=== PATIENT | male | born 1940 | race Caucasian/White ===

== ENCOUNTER 2018-08-24 16:52 | Emergency (ER) | payer MEDICARE, BC ==
--- NOTE | 2018-08-24 18:32 | EDM.PDOC ---
ED HPI GENERAL MEDICAL PROBLEM - General Chief Complaint: Chest Pain Stated Complaint: CHEST PAIN Time Seen by Provider: 08/24/18 18:12 Source of Information: Reports: Patient, Family (), RN Notes Reviewed - History of Present Illness INITIAL COMMENTS - FREE TEXT/NARRATIVE: 78 year old male has had R shoulder discomfort, mainly with abduction type motion since last evening. 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 No recent fall or injury. No anterior chest disomfort or heaviness. He has not been coughing any more than usual. He does not feel short of breath. No abdominal pain nausea vomiting or diaphoresis. Right Arm Pain Score (Numeric/FACES): 4 - Related Data Allergies Allergy/AdvReac Type Severity Reaction Status Date / Time No Known Allergies Allergy Verified 08/24/18 17:21 Past Medical History Cardiovascular History: Reports: High Cholesterol, Hypertension Endocrine/Metabolic History: Reports: Diabetes, Type II - Past Surgical History Cardiovascular Surgical History: Reports: Coronary Artery Bypass GI Surgical History: Reports: Hernia, Inguinal Social & Family History - Tobacco Use Smoking Status *Q: Former Smoker Used Tobacco, but Quit: Yes Month/Year Tobacco Last Used: 1969 - Caffeine Use Caffeine Use: Reports: Coffee - Recreational Drug Use Recreational Drug Use: No ED ROS GENERAL - Review of Systems Review Of Systems: See Below Constitutional: Denies: Fever, Chills, Diaphoresis HEENT: Denies: Sinus Problem, Throat Pain Respiratory: Denies: Shortness of Breath, Wheezing, Pleuritic Chest Pain, Cough Cardiovascular: Denies: Chest Pain, Lightheadedness GI/Abdominal: Denies: Abdominal Pain, Nausea, Vomiting Musculoskeletal: Reports: Shoulder Pain. Denies: Neck Pain, Arm Pain (Right shoulder), Back Pain Skin: Reports: No Symptoms Neurological: Denies: Dizziness, Weakness ED EXAM, GENERAL - Physical Exam Exam: See Below General Appearance: Alert, No Apparent Distress Throat/Mouth: Normal Inspection, Normal Oropharynx Head: Atraumatic Neck: Supple, Full Range of Motion Respiratory/Chest: No Respiratory Distress, Lungs Clear, Normal Breath Sounds Cardiovascular: Regular Rate, Rhythm GI/Abdominal: Soft, Non-Tender Back Exam: No: CVA Tenderness (L), CVA Tenderness (R) Extremities: Other (Right shoulder is nontender, no warmth or erythema he does have some pain with motion of the right arm, especially abduction) Neurological: Alert, No Motor/Sensory Deficits Skin Exam: Warm, Dry, Normal Color EKG INTERPRETATION EKG Date: 08/24/18 Rhythm: NSR [place]: Normal P-Wave: Present QRS: Other (LAFB) ST-T: Normal Course - Vital Signs Last Recorded V/S: Last Vital Signs Temp 98.1 F 08/24/18 17:19 Pulse 65 08/24/18 17:19 Resp 26 H 08/24/18 17:19 BP 146/91 H 08/24/18 17:19 Pulse Ox 93 L 08/24/18 17:19 - Orders/Labs/Meds Labs: Laboratory Tests 08/24/18 08/24/18 08/24/18 Range/Units 17:55 17:55 17:55 WBC 7.44 (4.23-9.07) K/mm3 RBC 5.76 (4.63-6.08) M/mm3 Hgb 16.6 (13.7-17.5) gm/L Hct 48.0 (40.1-51.0) % MCV 83.3 (79.0-92.2) fl MCH 28.8 (25.7-32.2) pg MCHC 34.6 (32.2-35.5) g/dl RDW Std Deviation 42.4 (35.1-43.9) fL Plt Count 183 (163-337) K/mm3 MPV 8.8 L (9.4-12.3) fl Neutrophils % (Manual) 78 H (40-60) % Band Neutrophils % 0 (0-10) % Lymphocytes % (Manual) 14 L (20-40) % Atypical Lymphs % 0 % Monocytes % (Manual) 4 (2-10) % Eosinophils % (Manual) 4 (0.8-7.0) % Basophils % (Manual) 0 L (0.2-1.2) Platelet Estimate Adequate RBC Morph Comment Normal PT 11.5 (9.5-12.1) SECONDS INR 1.06 APTT 29 (24-31) SECONDS Sodium 142 (136-145) mEq/L Potassium 3.8 (3.5-5.1) mEq/L Chloride 106 (98-107) mEq/L Carbon Dioxide 28 (21-32) mEq/L Anion Gap 11.8 (5-15) BUN 14 (7-18) mg/dL Creatinine 1.1 (0.7-1.3) mg/dL Est Cr Clr Drug Dosing 50.91 mL/min Estimated GFR (MDRD) > 60 (>60) mL/min BUN/Creatinine Ratio 12.7 L (14-18) Glucose 114 (83-115) mg/dL Calcium 9.2 (8.5-10.1) mg/dL Total Bilirubin 0.7 (0.2-1.0) mg/dL AST 18 (15-37) U/L ALT 28 (16-63) U/L Alkaline Phosphatase 54 (46-116) U/L CK-MB (CK-2) 1.2 (0-3.6) ng/ml Troponin I < 0.017 (0.00-0.056) ng/mL Total Protein 6.8 (6.4-8.2) g/dl Albumin 3.6 (3.4-5.0) g/dl Globulin 3.2 gm/dL Albumin/Globulin Ratio 1.1 (1-2) - Re-Assessments/Exams Free Text/Narrative Re-Assessment/Exam: 08/25/18 06:38 Troponin did come back normal, EKG does not show acute changes. He has pain with motion R shoulder, discharge instr. as documented. Departure - Departure Time of Disposition: 18:52 Disposition: Home, Self-Care 01 Condition: Fair Clinical Impression: Shoulder pain, right Qualifiers: Chronicity: acute Qualified Code(s): M25.511 - Pain in right shoulder Instructions: Shoulder Pain Referrals: PCP,Not In Area [Primary Care Provider] - Forms: ED Department Discharge Additional Instructions: Rest R arm and shoulder, no heavy lifting, shoveling snow also would be hard on your shoulder right now. Alternate ice and heat as needed, tylenol q 6 to 8 hr as needed. Follow up with your regular medical provider if not better within 5 to 7 days, Return to ED if symptoms worsening in any way.
--- NOTE | 2018-08-25 07:01 | CR ---
Chest: Portable view of the chest was obtained. Comparison: Prior chest x-ray of 10/27/16. Heart size is within normal limits for portable technique. Tortuous thoracic aorta is seen. Lungs are clear with no acute parenchymal change. Previous sternotomy is noted. Impression: 1. Nothing acute is seen on portable chest x-ray. Diagnostic code #2
== END 2018-08-24 19:30 | disposition home or self-care (01) ==
LOC: JD.ED 16:52
DX: M25.511 Pain in right shoulder (principal); I10 Essential (primary) hypertension; E11.9 Type 2 diabetes mellitus without complications; Z95.1 Presence of aortocoronary bypass graft; Z87.891 Personal history of nicotine dependence
CPT/HCPCS: 36415; 71045; 71045-26; 80053; 82553; 84484; 85007; 85027; 85610; 85730; 93005; 93010; 99283; 99285-25

== ENCOUNTER 2020-03-17 15:45 | Emergency (ER) | payer MEDICARE, BC ==
--- NOTE | 2020-03-17 17:54 | EDM.PDOC ---
ED HPI GENERAL MEDICAL PROBLEM - General Chief Complaint: Genitourinary Problem Stated Complaint: TESTICLE PAIN Time Seen by Provider: 03/17/20 17:39 Source of Information: Reports: Patient, RN Notes Reviewed History Limitations: Reports: No Limitations - History of Present Illness INITIAL COMMENTS - FREE TEXT/NARRATIVE: Patient is an 80-year-old male who presents to the ED for the evaluation of right testicle pain. Patient notes this was of sudden onset at around 1 PM today, he states however it has lessened up and is now only 3 out of 10 on the pain scale. He states that he also had pain across his low pelvic area/groin, he states he does not have a fever, he has no dysuria, frequency or urgency. Patient states that the pain was not positional, he states he did matter if he stood sat, or walked. He does not note any swelling to the testicle, he states he was also having some mild back pain with this. 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 Not appear to have any inguinal hernias, but does have an umbilical hernia. Again he is not having any fevers or chills, cough so shortness of breath, nausea/vomiting/diarrhea. States that his last good bowel movement was this morning and was normal for him. He denies any other urinary symptoms. He does not have a history of kidney stones. He has not noticed any blood in his urine. Other Treatments SKEIN STRAIGHTENER: none Right Pain Score (Numeric/FACES): 3 - Related Data Allergies Allergy/AdvReac Type Severity Reaction Status Date / Time No Known Allergies Allergy Verified 08/24/18 17:21 Home Meds: Home Meds Aspirin [Halfprin] 162 mg PO DAILY 03/17/20 [History] Losartan [Cozaar] 25 mg PO DAILY 03/17/20 [History] Metoprolol Tartrate 25 mg PO BID 03/17/20 [History] Rosuvastatin [Crestor] 20 mg PO DAILY 03/17/20 [History] metFORMIN [Glucophage XR] 500 mg PO BID 03/17/20 [History] Past Medical History HEENT History: Reports: Cataract, Impaired Vision Other HEENT History: wears eyeglasses. Cardiovascular History: Reports: High Cholesterol, Hypertension Musculoskeletal History: Reports: Fracture Endocrine/Metabolic History: Reports: Diabetes, Type II - Infectious Disease History Infectious Disease History: Reports: Chicken Pox, Measles, Mumps - Past Surgical History HEENT Surgical History: Reports: Cataract Surgery Cardiovascular Surgical History: Reports: Coronary Artery Bypass GI Surgical History: Reports: Hernia, Inguinal Social & Family History - Tobacco Use Smoking Status *Q: Former Smoker Used Tobacco, but Quit: Yes Month/Year Tobacco Last Used: 30 - Caffeine Use Caffeine Use: Reports: Coffee, Soda - Recreational Drug Use Recreational Drug Use: No ED ROS GENERAL - Review of Systems Review Of Systems: Comprehensive ROS is negative, except as noted in HPI. ED EXAM, RENAL/ - Physical Exam Exam: See Below Exam Limited By: No Limitations General Appearance: Alert, WD/WN, No Apparent Distress Respiratory/Chest: No Respiratory Distress, Lungs Clear, Normal Breath Sounds, No Accessory Muscle Use, Chest Non-Tender Cardiovascular: Normal Peripheral Pulses, Regular Rate, Rhythm, No Murmur GI/Abdominal: Normal Bowel Sounds, Soft, Non-Tender, No Mass, Distended (gernalized, but patient states that this is somewhat normal for him.) (Male) Exam: No Hernia, Normal Inspection, Circumcised, Testicular Tenderness (R) (on the posterior portion of right teste) Extremities: Normal Inspection, Normal Capillary Refill Neurological: Alert, Oriented, Normal Cognition, No Motor/Sensory Deficits Psychiatric: Normal Affect, Normal Mood Skin Exam: Warm, Dry, Intact, Normal Color, No Rash Course - Vital Signs Last Recorded V/S: Last Vital Signs Temp 97.5 F 03/17/20 16:39 Pulse 75 03/17/20 16:39 Resp 20 03/17/20 16:39 BP 149/92 H 03/17/20 16:39 Pulse Ox 92 L 03/17/20 16:39 - Orders/Labs/Meds Labs: Laboratory Tests 03/17/20 Range/Units 17:30 Urine Color Yellow (Yellow) Urine Appearance Clear (Clear) Urine pH 6.0 (5.0-8.0) Ur Specific [place] 1.025 (1.005-1.030) Urine Protein Negative (Negative) Urine Glucose (UA) Negative (Negative) Urine Ketones Negative (Negative) Urine Occult Blood 3+ H (Negative) Urine Nitrite Negative (Negative) Urine Bilirubin Negative (Negative) Urine Urobilinogen 0.2 (0.2-1.0) Ur Leukocyte Esterase Negative (Negative) Urine RBC 40-50 H (0-5) /hpf Urine WBC 0-5 (0-5) /hpf Ur Squamous Epith Cells 0-5 (0-5) /hpf Urine Bacteria Rare (FEW) /hpf Urine Mucus Not seen (FEW) /hpf - Re-Assessments/Exams Free Text/Narrative Re-Assessment/Exam: 03/17/20 17:56 Patient presents to the ED for evaluation of his right testicle pain. Have ordered urinalysis, the patient did collect a sample for us. He has pain along the posterior portion of the right testicle. Will await urinalysis results. 03/17/20 18:20 Urinalysis results demonstrate 40-50 red blood cells per high-power field, patient will have an abdomen pelvis CT without contrast for evaluation of possible kidney stone at this time. 03/17/20 19:26 CT demonstrates a 4 mm stone within the right mid ureter at about the L4-L5 level. There are also some cysts noted within the right kidney. Departure - Departure Time of Disposition: 19:27 Disposition: Home, Self-Care 01 Condition: Good Clinical Impression: Kidney stone on right side - Discharge Information *PRESCRIPTION DRUG MONITORING PROGRAM REVIEWED*: Yes *COPY OF PRESCRIPTION DRUG MONITORING REPORT IN PATIENT DANNY: No Instructions: Dietary Guidelines to Help Prevent Kidney Stones Referrals: PCP,Not In Area [Primary Care Provider] - Forms: ED Department Discharge Additional Instructions: You were evaluated in the ER today for your right flank/testicle pain. Your urinalysis did demonstrate some blood in urine, which is suggestive of a kidney stone at this time. A CT was done at this ER visit, this demonstrated a 4mm stone within your right ureter. You have been given a strainer, please use every time you use the bathroom to make sure that the kidney stone has passed. Recommend that you increase your oral fluid intake to try to help the stone pass. You have been given a few tablets of pain medication, please take as prescribed. These medications are highly addictive, please take as few as you need to. These medications also may cause constipation, please take a stool softener like MiraLAX while taking these medications. You may also take 600 mg ibuprofen every 6 hours as needed for further pain relief. Do not exceed 3200 mg in a 24-hour time span. If your pain is not much better in a week's time, you may need to follow up with your primary care physician, for a possible urology referral. Please return to the ED if your symptoms change or worsen. Sepsis Event Note (ED) - Evaluation Sepsis Screening Result: No Definite Risk - Focused Exam Vital Signs: Vital Signs Temp Pulse Resp BP Pulse Ox 03/17/20 16:39 97.5 F 75 20 149/92 H 92 L
--- NOTE | 2020-03-17 19:18 | CT ---
CT abdomen and pelvis Technique: Multiple axial sections were obtained from above the dome of the diaphragm inferiorly through the pubic symphysis. Intravenous and oral contrast not utilized. Study has been performed as a ureteral stone protocol. Comparison: No prior abdominal imaging is available. Findings: Right renal pelvis and proximal right ureter are slightly prominent. These findings are caused by an obstructing stone measuring 4 mm within the mid right ureter which is at the L4-5 level. Distal ureter shows no additional calcifications. Left ureter shows no abnormal calcifications. Kidneys show no other renal calcifications. Cysts are noted within the right kidney Other findings: Visualized lung bases shows a small subpleural nodule within the right lung base measuring about 2.5-3 mm. Slight areas of scarring are seen. Calcified granuloma is noted within the left base. Liver contains no focal parenchymal abnormality. Spleen shows no focal abnormality. Adrenal glands show no nodule. Pancreas is within normal limits. Gallbladder contains no abnormal calcifications. Aorta shows atherosclerotic calcification which continues into the iliac vessels. No aneurysm is seen. No pelvic mass or adenopathy is seen. Prostate gland is enlarged. Diverticuli are seen within the descending and sigmoid colon without findings of diverticulitis being seen. Appendix is seen and is normal in size. Bone window settings were reviewed which shows mild scattered degenerative change within the spine. No acute osseous finding is appreciated. Impression: 1. Obstructing 4 mm stone within the mid right ureter. 2. Other findings as noted above believed to be incidental and not acute. Diagnostic code #3 This report was dictated in MDT
== END 2020-03-17 19:35 | disposition home or self-care (01) ==
LOC: JD.ED 15:45
DX: N20.2 Calculus of kidney with calculus of ureter (principal); E78.00 Pure hypercholesterolemia, unspecified; I10 Essential (primary) hypertension; E11.9 Type 2 diabetes mellitus without complications; Z87.891 Personal history of nicotine dependence; Z95.5 Presence of coronary angioplasty implant and graft; Z79.82 Long term (current) use of aspirin; Z79.899 Other long term (current) drug therapy; Z79.84 Long term (current) use of oral hypoglycemic drugs
CPT/HCPCS: 74176; 74176-26; 81001; 99283; 99284-25

== ENCOUNTER 2021-07-22 12:57 | Emergency (ER) | payer MEDICARE, BC ==
[2021-07-22] MEDS ORDERED: HYDROmorphone 1 MG/ML Syringe IVPUSH ONE (13:47)
[2021-07-22] MEDS ORDERED: Sodium Chloride 0.9% 10 ML Syringe FLUSH PRN (13:47)
== END 2021-07-22 17:00 | disposition home or self-care (01) ==
LOC: JD.ED 12:57
DX: S82.851B Displaced trimalleolar fracture of right lower leg, initial encounter for open fracture type I or II (principal); I10 Essential (primary) hypertension; E78.00 Pure hypercholesterolemia, unspecified; E11.9 Type 2 diabetes mellitus without complications; Z79.84 Long term (current) use of oral hypoglycemic drugs; Z79.82 Long term (current) use of aspirin; Z79.899 Other long term (current) drug therapy; W00.0XXA Fall on same level due to ice and snow, initial encounter
CPT/HCPCS: 29515; 73610; 96374; 99283; J1170; 27810

== ENCOUNTER 2021-07-23 23:06 | Emergency (ER) | payer MEDICARE, BC ==
[2021-07-23] MEDS ORDERED: Sodium Chloride 0.9% 10 ML Syringe FLUSH PRN (23:11)
[2021-07-23] MEDS ORDERED: Sodium Chloride 0.9% 1,000 ML IV SCH (23:15)
[2021-07-24] MEDS ORDERED: Acetaminophen/HYDROcodone 325-5 MG Tab PO ONE (07:04)
[2021-07-24] MEDS ORDERED: Acetaminophen 325 MG Tab PO ONE (07:05)
== END 2021-07-24 08:00 | disposition home or self-care (01) ==
LOC: JD.ED 23:06
DX: R41.82 Altered mental status, unspecified (principal); E78.00 Pure hypercholesterolemia, unspecified; I10 Essential (primary) hypertension; E11.9 Type 2 diabetes mellitus without complications; Z79.82 Long term (current) use of aspirin; Z79.4 Long term (current) use of insulin; Z79.899 Other long term (current) drug therapy; Z95.1 Presence of aortocoronary bypass graft; Z91.19 Patient's noncompliance with other medical treatment and regimen
CPT/HCPCS: 36415; 70450; 80053; 81001; 85025; 85610; 85730; 93005; 99285; A9270; J7030

== ENCOUNTER 2022-08-04 15:31 | Emergency (ER) | payer MEDICARE, BC ==
[2022-08-04] MEDS ORDERED: Sodium Chloride 0.9% 1,000 ML IV ONE (16:05)
[2022-08-04] MEDS ORDERED: Ondansetron 4 MG/2 ML SDV IVPUSH ONE (16:05)
[2022-08-04] MEDS ORDERED: HYDROmorphone 0.5 MG/0.5 ML Syringe IVPUSH ONE (16:05)
== END 2022-08-04 17:44 ==
LOC: JD.ED 15:31
DX: N13.2 Hydronephrosis with renal and ureteral calculous obstruction (principal); E78.00 Pure hypercholesterolemia, unspecified; I10 Essential (primary) hypertension; E11.9 Type 2 diabetes mellitus without complications; Z86.16 Personal history of COVID-19; Z79.82 Long term (current) use of aspirin; Z79.84 Long term (current) use of oral hypoglycemic drugs; Z79.899 Other long term (current) drug therapy; Z95.1 Presence of aortocoronary bypass graft
CPT/HCPCS: 96361; 96374; 96375; 99285; J1170; J2405; J7030

== ENCOUNTER 2023-12-07 18:57 | Inpatient (IN) | payer MEDICARE, BC ==
[2023-12-07] MEDS: Acetaminophen 325 MG Tab PO ONE (19:34)
[2023-12-07 19:44] LABS: BASE EXCESS VENOUS 0.4 (-4.0-2.0); BICARBONATE,VENOUS 24.9 meq/L (22-26); O2 SATURATION VENOUS 68.4; PCO2 VENOUS 41.4 mmHg (41-51)
[2023-12-07 19:51] LABS: BASOPHILS ABSOLUTE AUTO 0.1 K/mm3 (0.0-0.2); BASOPHILS PERCENT AUTO 0.4 % (0.0-1.0); EOSINOPHILS PERCENT AUTO 0.1 % (0.0-6.0); HEMATOCRIT 51.9 % (42.0-52.0); HEMOGLOBIN 18.1 gm/dl (14.0-18.0); IMMATURE GRAN ABSOLUTE AUTO 0.05 K/mm3 (0.00-0.05); IMMATURE GRAN PERCENT AUTO 0.4 % (0.0-0.4); LYMPHOCYTES ABSOLUTE AUTO 0.4 K/mm3 (1.0-4.8); LYMPHOCYTES PERCENT AUTO 3.3 % (24.0-44.0); MEAN CORPUSCULAR HEMOGLOBIN 29.8 pg (28.0-32.0); MEAN CORPUSCULAR HGB CONC 34.9 g/dl (32.0-36.0); MEAN CORPUSCULAR VOLUME 85.5 fl (83.0-99.0); MEAN PLATELET VOLUME 9.1 fl (9.4-12.4); MONOCYTES ABSOLUTE AUTO 1.1 K/mm3 (0.0-0.8); MONOCYTES PERCENT AUTO 9.4 % (0.0-8.0); NEUTROPHILS ABSOLUTE AUTO 10.3 K/mm3 (1.8-7.7); NEUTROPHILS PERCENT AUTO 86.4 % (41.0-71.0); PLATELET COUNT,PLT 187 K/mm3 (150-400); RED BLOOD CELL COUNT 6.07 M/mm3 (4.52-5.90); WHITE BLOOD CELL COUNT,WBC 11.98 K/mm3 (3.9-11.3)
[2023-12-07 20:20] LABS: LACTIC ACID 1.3 mmol/L (0.4-2.0)
[2023-12-07 20:30] LABS: ALBUMIN 3.7 g/dl (3.4-5.0); ANION GAP 15.2 (5-15); CALCIUM 9.3 mg/dL (8.5-10.1); CREATININE 1.2 mg/dL (0.7-1.3); EST CRCL DRUG DOSING (CG) 42.84 mL/min; POTASSIUM,K 4.2 mEq/L (3.5-5.1); PROTEIN TOTAL,TP 7.4 g/dl (6.4-8.2)
[2023-12-07] MEDS: cefTRIAXone 1 GM in Sodium Chloride 0.9% 100 ML IV SCH (20:34)
[2023-12-07 21:13] LABS: APPEARANCE,URINE CLEAR (Clear); BILIRUBIN,URINE NEGATIVE (Negative); COLOR,URINE YELLOW (Yellow); GLUCOSE,URINE NEGATIVE (Negative); KETONES,URINE 1+ (Negative); LEUKOCYTE ESTERASE,URINE NEGATIVE (Negative); NITRITE,URINE NEGATIVE (Negative); OCCULT BLOOD,URINE NEGATIVE (Negative); PROTEIN,URINE NEGATIVE (Negative)
[2023-12-07] MEDS: Doxycycline 100 MG in Sodium Chloride 0.9% 100 ML IV SCH (21:21)
[2023-12-08] MEDS ORDERED: 50% Dextrose in Water 50 ML Syringe IVPUSH PRN (06:16)
[2023-12-08 07:49] LABS: BASOPHILS PERCENT AUTO 0.3 % (0.0-1.0); HEMATOCRIT 47.2 % (42.0-52.0); IMMATURE GRAN ABSOLUTE AUTO 0.03 K/mm3 (0.00-0.05); IMMATURE GRAN PERCENT AUTO 0.3 % (0.0-0.4); LYMPHOCYTES ABSOLUTE AUTO 0.5 K/mm3 (1.0-4.8); LYMPHOCYTES PERCENT AUTO 5.6 % (24.0-44.0); MEAN CORPUSCULAR HEMOGLOBIN 29.9 pg (28.0-32.0); MEAN CORPUSCULAR HGB CONC 34.7 g/dl (32.0-36.0); MEAN PLATELET VOLUME 8.8 fl (9.4-12.4); MONOCYTES ABSOLUTE AUTO 1.2 K/mm3 (0.0-0.8); MONOCYTES PERCENT AUTO 13.3 % (0.0-8.0); NEUTROPHILS ABSOLUTE AUTO 7.3 K/mm3 (1.8-7.7); NEUTROPHILS PERCENT AUTO 80.5 % (41.0-71.0); PLATELET COUNT,PLT 163 K/mm3 (150-400); RED BLOOD CELL COUNT 5.49 M/mm3 (4.52-5.90); WHITE BLOOD CELL COUNT,WBC 9.11 K/mm3 (3.9-11.3)
[2023-12-08 07:50] LABS: HEMOGLOBIN 16.4 gm/dl (14.0-18.0)
[2023-12-08] MEDS: Aspirin 81 MG Tab.EC PO SCH (08:28)
[2023-12-08] MEDS: Tamsulosin 0.4 MG Cap.ER PO SCH (08:28)
[2023-12-08] MEDS: Losartan 25 MG Tab PO SCH (08:28)
[2023-12-08] MEDS: Metoprolol Tartrate 25 MG Tab PO SCH (08:28)
[2023-12-08] MEDS: Rosuvastatin 10 MG Tab PO SCH (08:29)
[2023-12-08] MEDS: Acetaminophen 325 MG Tab PO PRN (11:13)
[2023-12-08] MEDS: metFORMIN 500 MG Tab PO SCH (12:00)
[2023-12-08] MEDS: Insulin Lispro 100 Unit/ML 3 ML KwikPen SUBCUT SCH (12:00)
[2023-12-08] MEDS: Enoxaparin 40 MG/0.4 ML Syringe SUBCUT SCH (12:49)
[2023-12-08 12:51] LABS: CHOLESTEROL HDL 33 mg/dL (40-59); CHOLESTEROL LDL DIRECT 40 mg/dL (<100); CHOLESTEROL TOTAL 82 mg/dL (<200); TRIGLYCERIDES 128 mg/dL (<150)
[2023-12-08] MEDS ORDERED: Benzocaine/Cetylpyridinium/Menthol Lozenge MUCMEM PRN (16:51)
[2023-12-08] MEDS: Sodium Chloride 0.9% 1,000 ML IV SCH (17:36)
[2023-12-08 18:42] LABS: BORDETELLA PARAPERT IS1001 Not Detected (Not Detected)
[2023-12-09] MEDS: Ondansetron 4 MG/2 ML SDV IVPUSH PRN (00:30)
[2023-12-09 07:17] LABS: HEMATOCRIT 44.5 % (42.0-52.0); HEMOGLOBIN 15.1 gm/dl (14.0-18.0); MEAN CORPUSCULAR HEMOGLOBIN 29.8 pg (28.0-32.0); MEAN CORPUSCULAR HGB CONC 33.9 g/dl (32.0-36.0); MEAN CORPUSCULAR VOLUME 87.8 fl (83.0-99.0); MEAN PLATELET VOLUME 9.6 fl (9.4-12.4); PLATELET COUNT,PLT 150 K/mm3 (150-400); RED BLOOD CELL COUNT 5.07 M/mm3 (4.52-5.90); WHITE BLOOD CELL COUNT,WBC 8.38 K/mm3 (3.9-11.3)
[2023-12-09 07:18] LABS: BASOPHILS PERCENT AUTO 0.5 % (0.0-1.0); IMMATURE GRAN ABSOLUTE AUTO 0.03 K/mm3 (0.00-0.05); IMMATURE GRAN PERCENT AUTO 0.4 % (0.0-0.4); LYMPHOCYTES ABSOLUTE AUTO 0.7 K/mm3 (1.0-4.8); LYMPHOCYTES PERCENT AUTO 8.5 % (24.0-44.0); MONOCYTES ABSOLUTE AUTO 1.2 K/mm3 (0.0-0.8); MONOCYTES PERCENT AUTO 13.8 % (0.0-8.0); NEUTROPHILS ABSOLUTE AUTO 6.4 K/mm3 (1.8-7.7); NEUTROPHILS PERCENT AUTO 76.8 % (41.0-71.0)
[2023-12-09] MEDS: REMDESIVIR 200 MG in Sodium Chloride 0.9% 250 ML IV ONE (11:37)
[2023-12-10 05:53] LABS: BASOPHILS PERCENT AUTO 0.4 % (0.0-1.0); EOSINOPHILS ABSOLUTE AUTO 0.1 K/mm3 (0.0-0.4); HEMATOCRIT 43.2 % (42.0-52.0); HEMOGLOBIN 14.6 gm/dl (14.0-18.0); IMMATURE GRAN ABSOLUTE AUTO 0.04 K/mm3 (0.00-0.05); IMMATURE GRAN PERCENT AUTO 0.6 % (0.0-0.4); LYMPHOCYTES ABSOLUTE AUTO 0.9 K/mm3 (1.0-4.8); LYMPHOCYTES PERCENT AUTO 12.1 % (24.0-44.0); MEAN CORPUSCULAR HEMOGLOBIN 29.6 pg (28.0-32.0); MEAN CORPUSCULAR HGB CONC 33.8 g/dl (32.0-36.0); MEAN CORPUSCULAR VOLUME 87.4 fl (83.0-99.0); MEAN PLATELET VOLUME 9.9 fl (9.4-12.4); MONOCYTES PERCENT AUTO 14.1 % (0.0-8.0); NEUTROPHILS ABSOLUTE AUTO 5.1 K/mm3 (1.8-7.7); NEUTROPHILS PERCENT AUTO 71.8 % (41.0-71.0); PLATELET COUNT,PLT 123 K/mm3 (150-400); RED BLOOD CELL COUNT 4.94 M/mm3 (4.52-5.90); WHITE BLOOD CELL COUNT,WBC 7.09 K/mm3 (3.9-11.3)
[2023-12-10 05:58] LABS: ANION GAP 12.8 (5-15); CALCIUM 8.1 mg/dL (8.5-10.1); EST CRCL DRUG DOSING (CG) 54.99 mL/min; POTASSIUM,K 3.8 mEq/L (3.5-5.1)
[2023-12-10] MEDS: REMDESIVIR 100 MG in Sodium Chloride 0.9% 250 ML IV SCH (12:00)
[2023-12-11 04:55] LABS: BASOPHILS PERCENT AUTO 0.4 % (0.0-1.0); EOSINOPHILS ABSOLUTE AUTO 0.1 K/mm3 (0.0-0.4); EOSINOPHILS PERCENT AUTO 1.8 % (0.0-6.0); HEMATOCRIT 44.7 % (42.0-52.0); HEMOGLOBIN 15.1 gm/dl (14.0-18.0); IMMATURE GRAN ABSOLUTE AUTO 0.02 K/mm3 (0.00-0.05); IMMATURE GRAN PERCENT AUTO 0.3 % (0.0-0.4); LYMPHOCYTES ABSOLUTE AUTO 0.9 K/mm3 (1.0-4.8); LYMPHOCYTES PERCENT AUTO 13.4 % (24.0-44.0); MEAN CORPUSCULAR HEMOGLOBIN 28.9 pg (28.0-32.0); MEAN CORPUSCULAR HGB CONC 33.8 g/dl (32.0-36.0); MEAN CORPUSCULAR VOLUME 85.5 fl (83.0-99.0); MEAN PLATELET VOLUME 9.2 fl (9.4-12.4); MONOCYTES ABSOLUTE AUTO 0.8 K/mm3 (0.0-0.8); MONOCYTES PERCENT AUTO 12.5 % (0.0-8.0); NEUTROPHILS ABSOLUTE AUTO 4.8 K/mm3 (1.8-7.7); NEUTROPHILS PERCENT AUTO 71.6 % (41.0-71.0); PLATELET COUNT,PLT 138 K/mm3 (150-400); RED BLOOD CELL COUNT 5.23 M/mm3 (4.52-5.90); WHITE BLOOD CELL COUNT,WBC 6.71 K/mm3 (3.9-11.3)
[2023-12-11 05:14] LABS: ANION GAP 12.4 (5-15); CALCIUM 8.1 mg/dL (8.5-10.1); EST CRCL DRUG DOSING (CG) 54.99 mL/min; POTASSIUM,K 3.4 mEq/L (3.5-5.1)
[2023-12-11] MEDS: Potassium Chloride 20 MEQ Tab.ER PO ONE (08:09)
== END 2023-12-11 13:50 | disposition home or self-care (01) | DRG 871 ==
LOC: JD.ED 18:57 → JD.MS 20:51
PROVIDERS: ADMIT Internal Medicine; ATTEND Internal Medicine
PROC: XW033E5 Introduction of Remdesivir Anti-infective into Peripheral Vein, Percutaneous Approach, New Technology Group 5 (ICD-10-PCS; principal; 2023-12-07)
PROC: 3E03329 Introduction of Other Anti-infective into Peripheral Vein, Percutaneous Approach (ICD-10-PCS; 2023-12-07)
DX: J18.9 Pneumonia, unspecified organism (principal); A41.89 Other specified sepsis; J12.82 Pneumonia due to coronavirus disease 2019; U07.1 COVID-19; I25.10 Atherosclerotic heart disease of native coronary artery without angina pectoris; I10 Essential (primary) hypertension; E11.9 Type 2 diabetes mellitus without complications; H54.7 Unspecified visual loss; E78.00 Pure hypercholesterolemia, unspecified; N40.0 Benign prostatic hyperplasia without lower urinary tract symptoms; G47.33 Obstructive sleep apnea (adult) (pediatric); Z95.1 Presence of aortocoronary bypass graft; Z79.82 Long term (current) use of aspirin; Z79.84 Long term (current) use of oral hypoglycemic drugs; Z79.899 Other long term (current) drug therapy; Z87.81 Personal history of (healed) traumatic fracture; Z86.16 Personal history of COVID-19; Z98.49 Cataract extraction status, unspecified eye; Z98.890 Other specified postprocedural states; Z87.891 Personal history of nicotine dependence
CPT/HCPCS: 36415; 70450; 70450-26; 71045; 71045-26; 80048; 80053; 80061; 81003; 82803; 82947; 83036; 83605; 83880; 84484; 85025; 87040; 87486; 87581; 87633; 93005; 93010; 94667; 94668; 94761; 96361; 96365; 97110-GP; 97161-GP; 99222; 99232; 99239; 99285; 99285-25; A9270-GY; J0248; J0696; J1650; J1815; J2405; J3490; J7030; J7050